=== PATIENT | female | born 1980 | race Asian ===

== ENCOUNTER 2021-02-04 09:05 | Outpatient (CLI) | payer OTHER | END 2021-02-04 22:10 | disposition home or self-care (01) | LOC: CT 09:05 | PROVIDERS: ATTEND Nurse Practitioner Family | DX: R22.1 Localized swelling, mass and lump, neck (principal); R22.0 Localized swelling, mass and lump, head | CPT/HCPCS: Q9963 ==

== ENCOUNTER 2021-05-01 16:07 | Outpatient (CLI) | payer OTHER | END 2021-05-01 23:06 | disposition home or self-care (01) | LOC: LAB 16:07 | PROVIDERS: ATTEND Nurse Practitioner | DX: E04.9 Nontoxic goiter, unspecified (principal); R53.82 Chronic fatigue, unspecified; Z68.43 Body mass index [BMI] 50.0-59.9, adult; E04.2 Nontoxic multinodular goiter; E66.01 Morbid (severe) obesity due to excess calories | CPT/HCPCS: 36415; 83520; 84439; 84443; 84445; 84481; 86376 ==

== ENCOUNTER 2021-08-02 17:06 | Outpatient (CLI) | payer OTHER | END 2021-08-02 19:06 | disposition home or self-care (01) | LOC: LAB 17:06 | PROVIDERS: ATTEND Internal Medicine | DX: E89.0 Postprocedural hypothyroidism (principal); E04.2 Nontoxic multinodular goiter; E66.01 Morbid (severe) obesity due to excess calories | CPT/HCPCS: 83520; 84439; 84443; 84445 ==

== ENCOUNTER 2021-11-08 15:49 | Outpatient (CLI) | payer OTHER | END 2021-11-08 19:29 | disposition home or self-care (01) | LOC: LABW 15:49 | PROVIDERS: ATTEND Internal Medicine | DX: E89.0 Postprocedural hypothyroidism (principal); E04.2 Nontoxic multinodular goiter; E66.01 Morbid (severe) obesity due to excess calories | CPT/HCPCS: 36415; 84439; 84443 ==